=== PATIENT | female | born 1960 | race Caucasian/White ===

== ENCOUNTER 2023-06-07 07:20 | Day surgery (SDC) | payer OTHER, SELFPAY ==
[2023-06-07 07:58] VITALS: BMI 24.4
[2023-06-07 08:01] VITALS: BP 122/60; PULSE 73; RESP 18; TEMP 37.1; O2SAT 100
--- NOTE | 2023-06-07 08:23 | P.CONAN_ITS ---
HPI - Anesthesia Eval Consult details Narrative: 63 F for colonoscopy NSTEMI , MVR . PMFSH Past Medical History Medical History (Updated 06/03/23 @ 13:33 by Snow Alaniz, RN) Hx of ovarian cyst Depression Hypertension Carotid stenosis Functional capacity: independent ambulation Family History Family history of problems with anesthesia: No Surgical History Surgical History (Updated 06/03/23 @ 13:34 by Snow Alaniz RN) Previous section Hx of cardiac cath Hx of colonoscopy History of Problems with Anesthesia: No Social History Social History Are you DNR?: No Advance Directives: No Advance Directives Information Provided: Yes Meds Allergies Allergy/AdvReac Type Severity Reaction Status Date / Time Macrodantin Allergy Unknown Nausea Uncoded 03/09/18 00:00 Active Medications: Current Medications Sodium Biphosphate/Sodium Phosphate (Sodium Phosphate,Wilbarger-Dibasic 133 Ml Enema) 133 ml OH ONCE PRN PRN Reason: Poor Colonoscopy Prep Results Home Medications Medication Instructions Recorded Confirmed Last Taken Type alendronate 70 mg tablet (Fosamax) 70 mg PO QWEEK 06/03/23 06/03/23 Unknown Hist ory amlodipine 5 mg tablet 5 mg PO DAILY 06/03/23 06/03/23 06/07/23 History ascorbic acid (vitamin C) 100 mg 100 mg PO DAILY 06/03/23 06/03/23 Unknown History tablet (Vitamin C) aspirin 81 mg tablet,delayed 81 mg PO DAILY 06/03/23 06/03/23 Unknown History release atorvastatin 20 mg tablet (Lipitor) 20 mg PO BEDTIME 06/03/23 06/03/23 Unknown History citalopram 10 mg/5 mL oral solution 10 mg PO DAILY 06/03/23 06/03/23 Unknown History cyclobenzaprine 10 mg tablet 10 mg PO TID PRN Muscle Spasm 06/03/23 06/03/23 Unknown History docusate sodium 50 mg capsule 50 mg PO BID 06/03/23 06/03/23 Unknown History ezetimibe 10 mg tablet (Zetia) 10 mg PO DAILY 06/03/23 06/03/23 Unknown History omega-3 fatty acids 1,000 mg PO DAILY 06/03/23 06/03/23 Unknown History quercetin 500 mg capsule mg PO 06/03/23 Unknown History Exam Exam Date and Time: June 07, [id number] Height,Weight and Vital Signs: Height 5 ft 1 in Weight 58.513 kg Last Vital Signs Temp 98.7 F 06/07/23 08:01 Pulse 73 06/07/23 08:01 Resp 18 06/07/23 08:01 BP 122/60 06/07/23 08:01 Pulse Ox 100 06/07/23 08:01 O2 Del Method Room Air 06/07/23 08:01 Airway Mallampati Class: III Loose/Missing/Broken Teeth: Yes Assessment and Plan Assessment Anesthesia Assessment: Anesthesia Plan Discussed and Chart Reviewed Final Anesthetic Review Family History of Problems with Anesthesia: No History of Problems with Anesthesia: No NPO: Yes ASA Class: III Final Preanesthetic Review: Meds/Allgs Chart Reviewed, Consent Obtained/Reviewed and Anes Risks/Benef Reviewed Patient Risk: Intermediate Procedure Risk: Intermediate Anesthetic Plan Anesthetic Plan: MAC: Disposition: Standard PACU
[2023-06-07] MEDS: Lactated Ringers 1,000 ML 50 ML IVCONT (08:37)
[2023-06-07] MEDS: Sodium Phosphate,Mono-Dibasic 133 ML ENEMA PR (08:37)
[2023-06-07 09:35] VITALS: BP 86/46; PULSE 72; RESP 16; TEMP 36.1; O2SAT 98
--- NOTE | 2023-06-07 09:41 | PM.OP ---
Brief Operative Note Date of Service: 06/07/23 Pre-op diagnosis: Screening Post-op diagnosis: other (Cecal polyps) Procedure: Colonoscopy to the cecum and TI with bx/removal of polyps Surgeon: Mario Lopez Anesthesia: MAC Was an Exhibit Display Representative used for this Procedure?: No Estimated blood loss (mL): 2.0 Pathology: other (A. Cecal polyps x 2) Condition: stable Disposition: PACU
[2023-06-07 09:45] VITALS: BP 97/43; PULSE 75; RESP 16; O2SAT 99
[2023-06-07 09:50] VITALS: BP 102/55; PULSE 66; RESP 16; TEMP 36.1; O2SAT 97
--- NOTE | 2023-06-07 10:14 | OP_ITS ---
DATE OF SERVICE: 06/07/2023 SURGEON: Mario Lopez MD INDICATIONS: The patient presents for evaluation of colorectal cancer screening. Full consent has been obtained from her for this, including risks of bleeding and perforation. PREOPERATIVE DIAGNOSIS: Colorectal cancer screening. POSTOPERATIVE DIAGNOSIS: Colorectal cancer screening, small colon polyps, diverticulosis, and internal hemorrhoids. PROCEDURE PERFORMED: Colonoscopy to cecum and terminal ileum with biopsy and removal of polyps. ESTIMATED BLOOD LOSS: COMPLICATIONS: ANESTHESIA: Monitored anesthesia care. ASSISTANTS: SPECIMENS: DESCRIPTION OF PROCEDURE: The patient was placed in the left lateral decubitus position. The digital rectal exam revealed no abnormalities. The Olympus video pediatric colonoscope was entered into the rectum and advanced easily to the cecum. Once in the cecum, I did identify cecal pouch with appendiceal orifice and a normal-appearing ileocecal valve. The terminal ileum was cannulated and appeared normal. The scope was withdrawn back in the colon. The entire cecum and ileocecal valve appeared normal other than 2 less than 5 mm polyps in the cecum, which were each biopsied and completely removed with cold biopsy forceps. The scope was then slowly withdrawn, assessing all mucosal surfaces carefully. Preparation was excellent. I did not visualize any other polyps, colitis, nor angiodysplasia. There was a mild amount of sigmoid diverticulosis. In the rectum, scope was retroflexed, visualizing small internal hemorrhoids, but no other pathology. The rectal mucosa appeared normal. Scope was straightened and withdrawn from the patient. She tolerated the procedure well and was returned to the recovery area in stable condition. IMPRESSION: 1. Small colon polyps. 2. Diverticulosis. 3. Internal hemorrhoids. PLAN: The results of biopsies will be checked. If these are tubular adenomas, I would recommend a followup colonoscopy in 5 years. If they are both hyperplastic, I would recommend a followup colonoscopy in 10 years. She was advised to resume her aspirin by tomorrow. Mario Lopez MD RMW/MODL / [id number]
== END 2023-06-07 10:21 | disposition home or self-care (01) ==
PROVIDERS: PCP Nurse Practitioner Family; Visit Provider Internal Medicine
PROC: 0DJD8ZZ Inspection of Lower Intestinal Tract, Via Natural or Artificial Opening Endoscopic (ICD-10-PCS; CPT 45378; principal; 2023-06-07 09:30)
DX: Z12.11 Encounter for screening for malignant neoplasm of colon (principal); D12.0 Benign neoplasm of cecum; K57.30 Diverticulosis of large intestine without perforation or abscess without bleeding; K64.8 Other hemorrhoids; I10 Essential (primary) hypertension; F32.A Depression, unspecified; Z79.82 Long term (current) use of aspirin; Z79.899 Other long term (current) drug therapy; Z88.8 Allergy status to other drugs, medicaments and biological substances
CPT/HCPCS: 45380; 88305